=== PATIENT | male | born 2000 | race Caucasian/White ===

== ENCOUNTER 2023-01-20 20:58 | Emergency (ER) | payer BC ==
[2023-01-20] MEDS ORDERED: Dexamethasone 4 MG TAB ONE (23:07)
== END 2023-01-20 23:22 | disposition home or self-care (01) ==
LOC: CSHERS 20:58
DX: U07.1 COVID-19 (principal)
CPT/HCPCS: 87081; 87430; 99283; J8540; U0003; U0005